=== PATIENT | female | born 1965 | race Two or more races ===

== ENCOUNTER 2016-10-14 05:37 | Emergency (ER) | payer OTHER ==
[~2016-10-14] VITALS: Ht 165.1 cm; Wt 72.6 kg
[~2016-10-14 05:37] MED LIST: GLIP10TA11; GLYB5TAB7; HYDR12.5; LOSA25TA13; VICODIN PO
--- NOTE | 2016-10-14 05:55 | NUR ---
PT BIBSELF, C/O "HIGH BLOOD PRESSURE" PT STATES SHE TOOK ATENOLOL 50MG 1 TAB 1 HR SEALANT MIXER. PT AOX4. RR EVEN AND UNLABORED. NO SOB NOTED. NAD NOTED. NO NVD AT THIS TIME. PT NOT DIAPHORETIC. PT GOWNED AND PLACED ON MONITOR.
[2016-10-14 05:57] VITALS: BP 151/91
== END 2016-10-14 06:36 | disposition home or self-care (01) ==
LOC: ER 05:40
DX: I10 Essential (primary) hypertension (principal); E11.9 Type 2 diabetes mellitus without complications
CPT/HCPCS: 99283; A4606; Z7610

== ENCOUNTER 2017-01-15 18:53 | Emergency (ER) | payer OTHER ==
[~2017-01-15] VITALS: Ht 157.5 cm; Wt 79.8 kg
--- NOTE | 2017-01-15 19:09 | NUR ---
BIB TO ED DT SP FALL TODAY. NO KO. PATIENT IS AAO4. APPEARS IN NO APPARENT DISTRESS. RESPIRATION EVEN AND UNLABORED,. SKIN IS WARM TO TOUCH AND NON DIAPHORETIC. PT IS COMPLAINING OF LEG AND AND BACK PAIN, SHARP, 10. ASSISTED PT TO ER BED 02. AWAITING FOR MD JARAMILLO
--- NOTE | 2017-01-15 19:28 | NUR ---
Patient discharged to home in stable condition. Written and verbal after care instructions given. Patient verbalizes understanding of instruction.
[2017-01-15 19:29] VITALS: BP 150/78
== END 2017-01-15 19:36 | disposition home or self-care (01) ==
LOC: ER 18:54
DX: S86.912A Strain of unspecified muscle(s) and tendon(s) at lower leg level, left leg, initial encounter (principal); E11.9 Type 2 diabetes mellitus without complications; E78.5 Hyperlipidemia, unspecified; I10 Essential (primary) hypertension; W01.0XXA Fall on same level from slipping, tripping and stumbling without subsequent striking against object, initial encounter; X50.1XXA Overexertion from prolonged static or awkward postures, initial encounter; Y93.89 Activity, other specified; Y92.89 Other specified places as the place of occurrence of the external cause; Y99.8 Other external cause status
CPT/HCPCS: A4606; Z7610